=== PATIENT | female | born 1975 | race Caucasian/White ===

== ENCOUNTER → 2017-01-10 | Outpatient (CLI) | payer MEDICAID ==
[~2017-01-10] MED LIST: ACHD5005 PO; ALBU8.5H2 INH; ALPR.25T; ALPR1T; ALPR1T PO; ALPR2TAB2 PO; ALPR2TAB6 PO; AMIT25TA9 PO; AMIT75TA2 PO; AZIT-21 PO; BIRTH CONTROL PILL PO; CEFD300C3 PO; CIPR500T4 PO; CLON1TAB36; CPR500T PO; CRS350T PO; CRYSELLE; CYCL5TAB PO; DCS100C PO; DIAZ10TA3 VG; DIPH1TAB25 PO; DLT240CCR; DOXY100T61 PO; EST.625T PO; ESTR0.9T PO; ESTR1TAB27 PO; FLUC200T45 PO; HYD; HYDR-2890 PO; HYDR-757 PO; HYDR1TAB PO; HYDR1TAB8 OP; IBP800T; IBP800T PO; IBUP-15 PO; INDO50CA; LAMO100T69; MAGN100T3 PO; MELO-195 PO; MELO15TA14 PO; MELO7.5T; METR500T PO; MOXI400T; ORPH100T PO; OXYC-12 PO; OXYC-272 PO; OXYC-281 PO; OXYC1TAB95 PO; OXYC40TA46 PO; OXYC40TA49 PO; PENT100C5 PO; PHEN100T26 PO; PREN1TAB39 PO; PRM25T PO; PROM25TA14 PO; PRX20T; QTP100T; SIMV40TA2; SOLI5TAB4 PO; TOPI100T; TOPI100T PO; TOPI50TA2 PO; TRAM-21 PO; TRAM100T2 PO; TRAM50TA2 PO; TRM50T; WRF2T; [UNRECOGNIZED DRUG - OTHER]; [UNRECOGNIZED DRUG - OTHER]
[2017-01-10 11:06] LABS: BASOPHILS # (AUTO) 0.1 10^3/uL (0.0-0.1); BASOPHILS % (AUTO) 1 % (0-10); EOSINOPHILS # (AUTO) 0.2 10^3/uL (0.0-0.3); EOSINOPHILS % (AUTO) 2 % (0-10); LYMPHOCYTES # (AUTO) 3.4 X 10^3 (1.0-4.0); LYMPHOCYTES % (AUTO) 32 % (12-44); MEAN CORPUSCULAR HEMOGLOBIN 28 PG (25-34); MEAN CORPUSCULAR HGB CONC 34 G/DL (32-36); MEAN CORPUSCULAR VOLUME 83 FL (80-99); MONOCYTES # (AUTO) 0.5 X 10^3 (0.0-1.0); MONOCYTES % (AUTO) 4 % (0-12); NEUTROPHILS # (AUTO) 6.5 X 10^3 (1.8-7.8); NEUTROPHILS % (AUTO) 61 % (42-75); PLATELET COUNT 332 10^3/uL (130-400); RED BLOOD COUNT 5.64 10^6/uL (4.35-5.85); RED CELL DISTRIBUTION WIDTH 13.9 % (10.0-14.5); WHITE BLOOD COUNT 10.6 10^3/uL (4.3-11.0)
--- NOTE | 2017-01-10 11:13 | Diagnostic Imaging Report ---
PA and lateral views of the chest Indication: Cough Findings: The lungs are clear. The heart size is normal. There is no effusion or pneumothorax The mediastinum and kyree appear unremarkable. Impression: Unremarkable study. Dictated by: Dictated on workstation # [id number]
[2017-01-10 11:24] LABS: ALANINE AMINOTRANSFERASE 15 U/L (0-55); ALBUMIN 4.1 GM/DL (3.2-4.5); ANION GAP 10 MMOL/L (5-14); ASPARTATE AMINO TRANSFERASE 18 U/L (5-34); BILIRUBIN,TOTAL 0.3 MG/DL (0.1-1.0); BLOOD UREA NITROGEN 8 MG/DL (7-18); BUN/CREATININE RATIO 10; CALCIUM 10.2 MG/DL (8.5-10.1); CARBON DIOXIDE 25 MMOL/L (21-32); CHLORIDE 103 MMOL/L (98-107); CREATININE SERUM 0.79 MG/DL (0.60-1.30); GFR ESTIMATED > 60; GLUCOSE 101 MG/DL (70-105); POTASSIUM 4.3 MMOL/L (3.6-5.0); SODIUM 138 MMOL/L (135-145); TOTAL PROTEIN 7.7 GM/DL (6.4-8.2)
== END ==
LOC: RAD 10:39
PROVIDERS: ATTEND Family Medicine
DX: R05 Cough (principal)
CPT/HCPCS: 36415; 71020; 80053; 85025

== ENCOUNTER → 2020-03-05 | Outpatient (CLI) | payer MEDICAID | LOC: LABNPT 05:28 | PROVIDERS: ATTEND Pediatrics | DX: R50.9 Fever, unspecified (principal); R05 Cough; Z53.9 Procedure and treatment not carried out, unspecified reason ==